=== PATIENT | male | born 1985 | race Caucasian/White ===

== ENCOUNTER → 2018-09-21 14:50 | Outpatient (CLI) | payer OTHER, SELFPAY ==
--- NOTE | 2018-09-21 14:58 | RAD_ITS ---
STUDY: X-RAY - CERVICAL SPINE REASON FOR EXAM: Male, 33 years old. Neck pain. TECHNIQUE: 5 view(s) of the cervical spine were obtained. COMPARISON: None FINDINGS: Normal anterior atlantoaxial articulation. Normal odontoid process. Normal cervical lordosis. Normal vertebral bodies and endplates. Normal disc space heights. There is no evidence of acute fracture or loss of vertebral axial height. There is maintenance of normal alignment. The soft tissue structures are unremarkable. RAD/Cerv Spine 2 or 3 Views IMPRESSION: Normal x-ray examination of the visualized cervical spine. Electronically Signed: Daniel Kang DO at 23:45 EST Tel [phone], Service support ,
== END ==
PROVIDERS: Family Provider Nurse Practitioner Family; PCP Nurse Practitioner Family; Referring Provider Anesthesiology Pain Medicine; Visit Provider Anesthesiology Pain Medicine
DX: M54.2 Cervicalgia (principal)
CPT/HCPCS: 72040